=== PATIENT | female | born 1955 ===

== ENCOUNTER 2017-12-24 01:30 | Observation (INO) | payer OTHER, BC ==
[~2017-12-24] VITALS: Ht 167.6 cm; Wt 74.8 kg
[2017-12-24] VITALS (11 sets, daily range): BP systolic 100–141; BP diastolic 56–95
[~2017-12-24 01:30] MED LIST: LISI-362 PO
[2017-12-24] MEDS ORDERED: MIDAZOLAM 2 MG/2 ML VIAL IVP PRN (11:55)
[2017-12-24] MEDS ORDERED: NORMOSOL R SOLN(*) 1000 ML BAG 1,000 ML IV PRN (11:55)
[2017-12-24] MEDS ORDERED: FAMOTIDINE 20 MG TAB PO ONE (11:55)
[2017-12-24] MEDS ORDERED: LIDOCAINE/SOD BICARB 8.4% SYR ID ONE (11:55)
[2017-12-24] MEDS ORDERED: ceFAZolin(*) 2GM/D5W 50ML 50 ML IVPB ONE (11:55)
[2017-12-24] MEDS ORDERED: MIDAZOLAM 2 MG/2 ML VIAL ONE (14:14)
[2017-12-24] MEDS ORDERED: fentaNYL CITR 100 MCG/2 ML AMP ONE ×4 (14:14→17:58)
[2017-12-24] MEDS ORDERED: PROPOFOL EMUL(*) 10MG/ML 20 ML 20 ML ONE (14:15)
[2017-12-24] MEDS ORDERED: DEXAMETHASONE SOD PHOS 10MG/ML ONE ×2 (14:15→15:12)
[2017-12-24] MEDS ORDERED: ROCURONIUM BROM 10 MG/ML 10 ML ONE (14:15)
[2017-12-24] MEDS ORDERED: ONDANSETRON 4 MG/2 ML VIAL ONE (14:15)
[2017-12-24] MEDS ORDERED: LIDOCAINE MPF 1% 5 ML VIAL ONE (14:15)
[2017-12-24] MEDS ORDERED: REMIFENTANIL HCL 1 MG VIAL ONE ×2 (14:50→16:39)
[2017-12-24] MEDS ORDERED: SUGAMMADEX SOD 200 MG/2 ML SDV ONE (17:03)
[2017-12-24] MEDS ORDERED: ROPIVACAINE 0.2% 20 ML VIAL ONE (17:09)
[2017-12-24] MEDS ORDERED: ACETAMINOPHEN(*)1000 MG/100 ML 100 ML IVPB ONE (17:41)
[2017-12-24] MEDS ORDERED: FLUSH 10 ML SYR IVP PRN (18:25)
[2017-12-24] MEDS ORDERED: APAP/HYDROCODONE 325/5 TAB PO PRN (18:25)
[2017-12-24] MEDS ORDERED: LR(*) 1000 ML BAG 1,000 ML IV PRN (18:25)
[2017-12-24] MEDS ORDERED: HYDROmorphone HCL 2 MG/ML SDV IVP PRN (18:25)
[2017-12-24] MEDS ORDERED: BISACODYL 10 MG SUPP PR PRN (18:25)
[2017-12-24] MEDS ORDERED: MAGNESIUM HYDROXIDE* 30ML UDCP PO PRN (18:25)
[2017-12-24] MEDS ORDERED: ACETAMINOPHEN(*)1000 MG/100 ML 100 ML IVPB PRN (18:25)
[2017-12-24] MEDS ORDERED: ACETAMINOPHEN 500 MG TAB PO PRN (18:25)
[2017-12-24] MEDS ORDERED: ONDANSETRON 4 MG/2 ML VIAL IVP PRN (18:25)
[2017-12-24] MEDS ORDERED: diphenhydrAMINE 25 MG CAP PO PRN (18:25)
[2017-12-24] MEDS ORDERED: BENZOCAINE/MENTHOL 1 EACH LOZG PO PRN (18:25)
[2017-12-24] MEDS ORDERED: oxyCODONE HCL 5 MG CAP PO PRN (18:25)
[2017-12-24] MEDS ORDERED: DIAZEPAM 5 MG TAB PO PRN (18:25)
--- NOTE | 2017-12-24 19:50 | OPERATIVE REPORT 1 ---
EVENT DATE: December 24, 2017 SURGEON: Torito Trammell MD ANESTHESIOLOGIST: Giovanny Woods MD ANESTHESIA: General endotracheal anesthesia. LPN PER DIEM: SANDRA Montemayor PREOPERATIVE DIAGNOSIS L4-L5 spondylolisthesis. POSTOPERATIVE DIAGNOSIS L4-L5 spondylolisthesis. PROCEDURE PERFORMED L4-L5 transforaminal lumbar interbody fusion. INTRAVENOUS FLUIDS 1900 mL ESTIMATED BLOOD LOSS 60 mL IMPLANTS USED Reline pedicle screws 6.5 mm x 45 mm from [employer] times four, 35 mm connecting rods from [employer] times two, locking caps from [employer] times four, a size extra large, 13 mm lordotic curvilinear interbody spacer from [employer], and 3 mL of ViBone. SPECIMENS None. DRAINS None. COMPLICATIONS None. DISPOSITION Post-anesthesia care unit. INDICATIONS FOR SURGERY Ms. Molina is a 62-year-old female with a history of worsening back pain and left lower extremity radiating symptoms in an L4 and L5 distribution. She had undergone physical therapy, medications, and activity modifications without improvement. She, therefore, underwent bilateral L4-L5 facet injections and had excellent improvement of her pain for a couple of days. Her physical examination was normal, but her imaging studies showed a spondylolisthesis at L4 -L5 with some degenerative disk disease and bilateral neural foraminal and lateral recess narrowing at that level seen on MRI. Secondary to ongoing symptoms and failure of improvement with nonsurgical care, Ms. Molina was offered and elected to undergo L4-L5 transforaminal interbody fusion. Prior to surgery, I explained in detail to the patient the possible risks of surgery. These risks include bleeding, infection, damage to surrounding structures, errant placement of instrumentation, nerve root injury, spinal fluid leak, meningitis, , blindness, sexual dysfunction, autonomic nervous system dysfunction, persistent and/or worsening pain, and other unforeseen medical and surgical complications. An understanding that spinal surgery is more predictive in improving extremity discomfort than axial spine pain was stressed. DESCRIPTION OF PROCEDURE On the date of surgery, the patient was met in the preoperative hold area. All questions were answered, and the operative site was identified and marked by myself. The patient was brought in good condition to the operating room, and after succumbing to anesthesia, was placed in the prone position on a Xavi table. All bony protuberances and soft tissues were well padded in the standard fashion. Care was taken to maintain appropriate perfusion pressures during anesthesia. Preoperative antibiotics were administered according to the appropriate timing schedule. At the conclusion of the procedure, sponge and needle counts were correct times two. A final timeout was undertaken by members of the operating team to confirm correct patient, correct levels, and correct surgery. Under fluoroscopic guidance, the skin was marked at the appropriate spinal levels. The patient was prepped and draped in the standard sterile orthopedic fashion, and two Ken-type incisions were made approximately 3 cm in length 1.5 cm lateral to the lateral borders of the pedicles as identified on imaging. Sharp dissection was carried out through the subcutaneous tissue and fat until we encountered the fascia. The fascia was split longitudinally, and finger dissection was used between the longissimus and multifidus muscles, coming down onto the transverse processes of L4 and L5 just lateral to the L3-L4 and L4-L5 facet joints. Fluoroscopy was brought into the field, and standard technique was used to cannulate the pedicles of L4 and L5 bilaterally. On the left side of the pedicle, the Jamshidi needles were placed at the 9 o'clock position and advanced against resistance through the pedicle under fluoroscopic guidance. Once they were through the isthmus of the pedicle, guidewires were placed. On the right side, the Jamshidi needles were placed at the starting point at approximately 3 o'clock on the pedicles. Again, these were advanced against resistance through the isthmus of the pedicle, and wires were then placed. Lateral images confirmed appropriate placement of the wires. Under lateral imaging, we then tapped the pedicles under fluoroscopic guidance and tested the taps with electrophysiologic monitoring. These all tested high. On the right side, 6.5 mm x 45 mm screws with appropriate towers were placed. On the left side, 6.5 mm x 45 mm screws with integrated retractor blades were placed. The self-retaining retractor was then attached to these blades and a medial retractor attached as well. The facet joint of L4-L5 on the left and the L4 lamina were cleared of soft tissue. An osteotome was used to osteotomize the inferior articular process of L4, taking care not to osteotomize the pedicle above. The osteotome was then used to remove the superior articular process of L5 in a similar fashion. This allowed us access to the disk space through the transforaminal window. Hemostasis was obtained, and annulotomy knife was used to perform an annulotomy of the L4-L5 disk. A combination of sixto, curettes , and pituitary rongeurs was used to perform a subtotal discectomy of L4-L5. Double-angle curettes were used to ensure that the cartilaginous fragments were removed from the endplates of both L4 and L5. Once we were convinced that our disk prep was appropriate, a 13 mm trial was placed and confirmed to be the appropriate size on both AP and lateral projections. We then selected a size extra large, 13 mm tall, curvilinear graft and packed it with ViBone. Under fluoroscopic guidance, this was placed into the disk space and rotated into appropriate position. This was confirmed on AP and lateral x-rays. The retractor blades and the retractor were then removed, and towers were popped onto the screw shanks at L4 and L5 on the left. The caliper was used to measure for appropriate radhames length, and minimally invasive techniques were used to place the radhames within the tulips of the pedicle screws bilaterally. Locking caps were placed and tightened in the L4 screws, and then while performing a compression maneuver across the disk space, the L5 locking caps were similarly tightened. The locking caps were then finally tightened with the torque limiter , and the towers were removed. Final radiographs were obtained that showed excellent positioning of the interbody graft as well as the pedicle screw construct. The wound was irrigated with copious sterile saline solution, and then wounds were closed using interrupted sutures for the deep fascia, inverted interrupted sutures for the subcutaneous tissue, and then running subcuticular skin stitch. Sponge and needle counts were correct times two. POSTOPERATIVE CARE PLAN Ms. Molina will stay in the hospital likely overnight and will most likely be discharged home postop day 1 with instructions to follow up in two weeks' time. At that time, we will perform a wound check and examination. KING
[2017-12-24] MEDS ORDERED: PROMETHAZINE 25 MG/ML 1 ML AMP IVP PRN (19:55)
[2017-12-24] MEDS: traMADol 50 MG TAB PO PRN (20:02)
[2017-12-24] MEDS: DOCUSATE SODIUM 100 MG CAP PO SCH (21:00)
[2017-12-24] MEDS: ceFAZolin(*) 2GM/D5W 50ML 50 ML IVPB SCH (21:59)
--- NOTE | 2017-12-24 22:26 | Hospitalist Consultation ---
History of Present Illness Requesting Physician Torito Trammell MD Reason for Consult Medical management Chief Complaint Nausea and feeling cold postop History of Present Illness Mrs. Molina is a 62 y.o. female with PMH of HTN on Lisinopril 10mg and Solitary kidney since underwent L4-[address] Trammell today. She tolerated the procedure but c/o nausea and feeling cold. She is afebrile and hemodynamically stable. History Home Meds Reported Medications Lisinopril (LISINOPRIL) 10 Mg Tablet, 10 MG PO QDAY, TAB 12/22/17 Allergies: Coded Allergies: codeine (Verified Adverse Reaction, Intermediate, VOMITING, 12/22/17) Uncoded Allergies: NARCOTICS (Adverse Reaction, Intermediate, VOMITING, 12/22/17) Hx Smoking: No Caffeine Intake: Soda Caffeine/Cups Per Day: 1-2 diet soda/ day Hx Alcohol Use: No Hx Substance Use Disorder: No Social Drug Use: Never History of IV Drug Use: No Review of Systems Constitutional: No Fever (Temp=96.5F), No Weight Loss, No Weight Gain, No Chills, No Night Sweats Neurological: No Confusion, No Weakness, No Dizziness Cardiovascular: No Chest Pain, No Palpitations Respiratory: No Shortness of Breath, No Cough, No Wheezing Gastrointestinal: Nausea, No Vomiting, No Diarrhea, No Dysphagia, No Constipation, No Early Satiety, No Hematemesis, No Hematochezia, No Melena, No Abdominal Pain Genitourinary: Other, No Dysuria, No Hematuria Musculoskeletal: Pain, No Sprain, No Strain, No Impaired Mobility Psychiatric: No Depression, No Anxiety Exam Vital Signs Vital Signs Date Time Temp Pulse Resp B/P (MAP) Pulse Ox O2 Delivery O2 Flow Rate FiO2 12/24/17 19:31 96.1 12 132/70 (90) 100 Nasal Cannula 2.0 12/24/17 18:35 66 General Appearance: Alert, Awake, Afebrile Neuro: No Gross deficits Eyes: PERRLA ENT: Normal Cardiovascular: Normal Rhythm & Peripheral Pulses Respiratory: No Respiratory Distress GI: Abd Soft and Non-Tender Integumentary: Skin Intact without Lesion / Mass Medical Decision Making Pre-Admit Course Medical Record Review: Yes Assessment and Plan Problems: (1) Hypertension Status: Chronic Assessment & Plan: Her BP has been stable at present I will hold her Lisinopril today and start in am (2) Acquired spondylolisthesis of lumbosacral region Status: Acute Assessment & Plan: s/p Spinal surgery by Dr. Trammell Management as per surgery. I will start Phenergan /Zofran for nausea and Protonix 40mg po qd. I will provide her warm blanket. Condition stable Time Spent on Plan of Care: > 30 min Copies to: TORITO TRAMMELL MD Venous Thromboembolism VTE Risk Physician Assess for VTE Risk: Yes Patient's VTE Risk: Low VTE Diagnostic Test 2 Days Prior to Admit: No Antithrombotics Is Pt On Any Antithrombotics?: No CORI BOLES MD December 24, 2017 22:26
[2017-12-25] MEDS: traMADol 50 MG TAB PO PRN ×3 (00:10→09:38)
--- NOTE | 2017-12-25 01:53 | RADIOLOGY IMAGING REPORT ---
FACILITY: [facility] [place] PATIENT NAME: Nidhi Molina : 1955 MR: [id number] V: [id number] EXAM DATE: ORDERING PHYSICIAN: SCOTT NORRIS TECHNOLOGIST: Location: [facility] Patient: Nidhi Molina : 1955 Visit/Account:[id number] Date of Sevice: 12/24/2017 C-ARM FLUORO >1 HR History: L4-5 fusion. COMPARISON: None Findings: 2 intraoperative fluoroscopic views lumbar spine demonstrate posterior fusion hardware at L 4-5. Images were obtained for guidance. Fluoroscopy time 170 seconds. IMPRESSION: Intraoperative fluoroscopy used for guidance. Report Dictated By: Brad Roberto MD at 12/25/2017 1:49 AM Report E-Signed By: Brad Roberto MD at 12/25/2017 1:50 AM WSN:[email or web address]
[2017-12-25 05:07] VITALS: BP 99/51
[2017-12-25] MEDS: ceFAZolin(*) 2GM/D5W 50ML 50 ML IVPB SCH (05:31)
[2017-12-25] MEDS ORDERED: TRAM-420 PO (07:03)
[2017-12-25] MEDS ORDERED: DIA5 PO (07:05)
[2017-12-25 07:55] VITALS: BP 109/65
--- NOTE | 2017-12-25 08:16 | Hospitalist Progress Note ---
Subjective Progress Notes Subjective She has no concerns today. She states she is ready to go home. Patient Complains of: Cardiovascular: No: Chest Pain Respiratory: No: Shortness of Breath Physical Exam Vital Signs Date Time Temp Pulse Resp B/P (MAP) Pulse Ox O2 Delivery O2 Flow Rate FiO2 12/25/17 08:00 91 Room Air 12/25/17 07:55 98.6 81 109/65 (80) 12/24/17 21:30 1.0 12/24/17 19:31 12 General Appearance: Alert, Awake, No Acute Distress, Afebrile Neuro: No Gross deficits Cardiovascular: Regular Rate and Rhythm Respiratory: No Respiratory Distress, Clear to Auscultation GI: Soft and Non-Tender Psych: Alert & Oriented X3, Appropriate Mood & Affect Assessment and Plan Problems: (1) Acquired spondylolisthesis of lumbosacral region Status: Acute Assessment & Plan: s/p Spinal surgery by Dr. Trammell. (2) Hypertension Status: Chronic Assessment & Plan: She is on chronic treatment with Lisinopril. This medication will be held at this time secondary to hypotension. Exam Sepsis Risk: No Definite Risk DIALLO LOPEZ [employer] December 25, 2017 08:16
[2017-12-25] MEDS: DOCUSATE SODIUM 100 MG CAP PO SCH (08:49)
[2017-12-25 10:39] VITALS: Ht 167.6 cm; Wt 74.8 kg
[2017-12-25] MEDS ORDERED: PANTOPRAZOLE SOD 20 MG TABEC PO SCH (21:00)
--- NOTE | 2017-12-30 16:04 | HISTORY AND PHYSICAL ---
DATE OF ADMISSION: 12/29/2017 HISTORY OF PRESENT ILLNESS Nidhi Molina is a 62-year-old female who presented to my clinic with the chief complaint of radiating left L4 distribution and L5 distribution leg pain. She had failed nonsurgical treatment including injections, physical therapy and activity modifications. PAST MEDICAL HISTORY Hypertension. PAST SURGICAL HISTORY 1. Cholecystectomy. 2. Right knee arthroscopy. 3. Left wrist surgery. 4. Bilateral rotator cuff repairs. MEDICATIONS Lisinopril. FAMILY HISTORY Noncontributory. REVIEW OF SYSTEMS Noncontributory. PHYSICAL EXAMINATION GENERAL: A well-appearing, well-developed female in no acute distress. She was alert and oriented times three. HEENT: Hearing is intact. NEUROLOGIC: Cranial nerves II through XII are intact. She had a normal gait. Examination was normal. CHEST: Clear to auscultation. CARDIAC: Regular rate and rhythm. ABDOMEN: Soft and nontender. IMAGING Studies showed left greater than right foraminal and lateral recess narrowing at the L4-L5 level. ASSESSMENT AND PLAN Ms. Molina had spinal stenosis with good relief of symptoms temporarily after a transforaminal epidural steroid injection at L4-L5. Secondary to this we offered to her and she elected to undergo L4-L5 transforaminal lumbar interbody fusion. KING
== END 2017-12-25 08:18 | disposition home or self-care (01) ==
LOC: OR 01:30 → MED 18:35
PROVIDERS: ADMIT Orthopaedic Surgery; ATTEND Orthopaedic Surgery
DX: M43.16 Spondylolisthesis, lumbar region (principal)
CPT/HCPCS: 20930; 22630; 36415; 76001; 86850; 86900; 86901; 97161; C1713; G0378; J0131; J1100; J2001; J2250; J2405; J2550; J2704; J2795; J3010; J0690